=== PATIENT | female | born 2000 | race Caucasian/White ===

== ENCOUNTER 2024-10-02 19:01 | Emergency (ER) | payer BC, SELFPAY ==
--- NOTE | 2024-10-02 19:05 | ED_ITS ---
HPI HPI - General Adult General Chief complaint: Vaginal Bleeding Stated complaint: Vaginal Bleeding Time Seen by Provider: 10/02/24 19:04 Source: patient and family (mother) Mode of arrival: walk-in Limitations: no limitations History of Present Illness HPI narrative: The patient is a 24 year old female who present to the emergency department via personal vehicle with mother. Patient's presenting to the emergency department today for evaluation of dysfunctional uterine bleeding. She has been bleeding for several weeks. She was on control pills for 4-5 years. Then she did not have another period for 3-4 months. Then she started bleeding again. She has been bleeding for the last 3 months. Patient states her bleeding has been getting more heavy. She is using about 8 pads a day the last few days. Patient states that the lightest its ever got has just been spotting. The patient is a G0, P0. [facility] She was going to refer the patient to Dr. Ledesma this week but he does not have availability tomorrow. So, they advised her to come to the emergency department because she was complaining of feeling weak and short of breath. Prior to her visit, the patient had an ultrasound on Sunday that unfortunately was nondiagnostic. I personally reviewed the report and it revealed that there was no evidence of details about the ovaries nor endometrium as the body habitus and bowel gas precluded the patient's accurate results from her transvaginal ultrasound. Patient is having pain in the right adnexal area. It has been coinciding with this entire process. She is not having any nausea vomiting. No diarrhea or constipation. No anorexia. Had an ultrasound at [facility]. It was transvaginal ultrasound that was unequivoc al. The patient stated that they could not see her ovaries or endometrium well. Patient is concerned because they have an impressive family medical history. Her mother has had a hysterectomy as well as all of her paternal aunts. She also says that there is a heavy history of PCOS, endometriosis, and cysts present. Related Data Home Medications ?Medication ?Instructions ?Recorded ?Confirmed levonorgestrel-ethinyl estradiol tab 10/02/24 0.1 mg-20 mcg tablet (Lessina) Previous Rx's ?Medication ?Instructions ?Recorded hydrocodone 5 mg-acetaminophen 325 1 tab PO QID PRN pa in #10 tabs 10/02/24 mg tablet megestrol 20 mg tablet See Rx Instructions .Route 0 10/02/24 .COMPLEX #14 tabs Allergies Allergy/AdvReac Type Severity Reaction Status Date / Time No Known Drug Allergies Allergy Verified 10/02/24 19:14 Opioid [facility] Opioid Management Most Recent Opioid Data: Last Pain Scale 5 Today, 19:34 Last ED Pain Assessment Today, 19:34 Review of Systems ROS Narrative 10 Systems were reviewed, and unless not ed in the HPI, all other systems are reviewed, unremarkable, or noncontributory. PFSH PFS Social History Little interest or pleasure in doing things: not at all Feeling down, depressed, or hopeless: not at all Exam Narrative Exam Narrative: Prior to examining the patient, I have washed with hospital approved and provided Antiseptic Hand [employer] and have also applied gloves.? Prior to touching the patient, I asked for consent to examine the patient.? General: Alert and oriented, well nourished, mild distress. Eye: PERRL, EOMI, normal conjunctiva. HENT: Normocephalic, normal hearing, moist oral mucosa, no scleral icterus Lungs: Clear to auscultation and percussion, non-labored respiration. Heart: Normal rate, regular rhythm, no murmur, gallop or edema. Abdomen: Soft, non-tender, non-distended, normal bowel sounds, no masses. Musculoskeletal: Normal range of motion and strength, no tenderness or swelling. Skin: Skin is warm, dry and pink, no rashes or lesions. Neurologic: Awake, alert, and oriented X3, CN II-XII intact. Psychiatric: Cooperative, appropriate mood and affect.? Following the conclusion of the examination, I have washed my hands thoroughly after removing examination gloves. Constitutional Vital Signs, click to edit/add: Last Vital Signs Temp 98.1 F 10/02/24 19:07 Pulse 86 10/02/24 19:07 Resp 18 10/02/24 19:07 BP 143/83 H 10/02/24 19:07 Pulse Ox 99 10/02/24 19:07 Course Course Hospital Course: Patient was here for investigational studies and as well as referral information. Patient was concerned that she may be anemic secondary to blood loss. Her hemoglobin is 11.1. The patient has no history of acute coronary artery disease and therefore does not necessitate any transfusion or emergent intervention at this time. Patient has vital signs that are stable. Reevaluation(s) Reevaluation #1: After talking to Dr. Ledesma. I did have an opportunity speak with the patient as well as her mother. They seem pleased with the disposition planning. All questions were answered to their satisfaction. Time: 20:43 Vital Signs Vital signs: Vital Signs Temperature 98.1 F 10/02/24 19:07 Pulse Rate 86 10/02/24 19:07 Respiratory Rate 18 10/02/24 19:07 Blood Pressure 143/83 H 10/02/24 19:07 Pulse Oximetry 99 10/02/24 19:07 Temperature 98.1 F 10/02/24 19:07 Pulse Rate 86 10/02/24 19:07 Respiratory Rate 18 10/02/24 19:07 Blood Pressure 143/83 H 10/02/24 19:07 Pulse Oximetry 99 10/02/24 19:07 Medical Decision Making Differential Diagnosis Differential Diagnosis: appendicitis, ovarian cyst, ovarian torsion, constipation, DUB, blood loss Medical Records Medical records reviewed: Yes I reviewed the patient's medical records Lab Data Lab results reviewed: Yes I reviewed the patient's lab results Lab results narrative: CBC reveals mild elevation of white blood cell count which can be from stress versus taking the control pills. The patient however has no evidence of needing a transfusion. She has mild anemia at 11.1 and hematocrit of 34.2. Based on overall was unremarkable. Her left flank function are appropriate and patient's test is negative. Patient had indicated that she may have been having some urgency and frequency with urination but there is negative nitrite rates and trace leukocyte esterase. There is no indication of urinary tract infection at this time. Labs: Lab Results 10/02/24 10/02/24 Range/Units 19:15 19:30 WBC 13.2 H (4.0-11.0) 10^3/uL RBC 4.14 L (4.20-5.40) 10^6/uL Hgb 11.1 L (12.0-16.0) g/dL Hct 34.2 L (36.0-48.0) % MCV 82.6 (81.0-99.0) fL MCH 26.8 (26.7-34.0) pg MCHC 32.5 (29.9-35.2) g/dL RDW 14.2 (11.0-15.0) % Plt Count 486 H (150-450) 10^3/uL MPV 8.6 L (9.5-13.5) fL Neut % (Auto) 58.3 (43.0-75.0) % Lymph % (Auto) 34.0 (20.5-60.0) % [place] % (Auto) 6.1 (1.7-12.0) % Eos % (Auto) 0.9 (0.9-7.0) % Baso % (Auto) 0.5 (0.2-2.0) % Neut # (Auto) 7.7 H (1.4-6.5) 10^3/uL Lymph # (Auto) 4.5 H (1.2-3.8) 10^3/uL [place] # (Auto) 0.8 (0.3-0.8) 10^3/uL Eos # (Auto) 0.1 (0.0-0.7) 10^3/uL Baso # (Auto) 0.1 (0.0-0.1) 10^3/uL Abs Immat Gran (auto) 0.03 (0.00-0.03) 10^3/uL Imm/Tot Granulo (auto) 0.2 (0.0-0.5) % Sodium 139 (136-145) mmol/L Potassium 3.3 L (3.5-5.1) mmol/L Chloride 103 (98-107) mmol/L Carbon Dioxide 25.1 (21.0-32.0) mmol/L Anion Gap 14.2 BUN 6.0 L (7.0-18.0) mg/dL Creatinine 0.84 (0.55-1.02) mg/dL Est GFR ( Amer) >60 (>=60 mL/min/1.73m^2) Est GFR (Non-Af Amer) >60 (>=60 mL/min/1.73m^2) BUN/Creatinine Ratio 7.1 Glucose 107 H (74-106) mg/dL Calcium 9.0 (8.5-10.1) mg/dL C-Reactive Protein 1.01 H (<=0.50) mg/dL HCG, Quant <1 mIU/mL Urine Color Lt. yellow (YELLOW) Urine Clarity Clear (CLEAR) Urine pH 6.5 (5.0-9.0) Ur Specific [place] <=1.005 A (1.005-1.025) Urine Protein Trace (NEG/TRACE) mg/dL Urine Glucose (UA) Negative (NEGATIVE) mg/dL Urine Ketones Negative (NEGATIVE) mg/dL Urine Occult Blood Large A (NEGATIVE) Urine Nitrite Negative (NEGATIVE) Urine Bilirubin Negative (NEGATIVE) Urine Urobilinogen 0.2 (0.2-1.0) EU/dL Ur Leukocyte Esterase Trace A (NEGATIVE) Discharge Plan Discharge Chief Complaint: Vaginal Bleeding Clinical Impression: Menometrorrhagia, Dysfunctional uterine bleeding Patient Disposition: Home, Self-Care Condition: Good Mode of Transportation: Private Vehicle Prescriptions / Home Meds: New megestrol 20 mg tablet See Rx Instructions .ROUTE .COMPLEX Qty: 14 0RF Rx Instructions: 20 mg orally PO BID x 4 days, then once daily hydrocodone-acetaminophen 5-325 mg tablet 1 tab PO QID PRN (Reason: pain) Qty: 10 0RF No Action levonorgestrel-ethinyl estrad [Lessina] 0.1-20 mg-mcg tablet Print Language: Polish Instructions: Abnormal (Dysfunctional) Uterine Bleeding (ED) Additional Instructions: Thank you for trusting me with your care today. These are the instructions from Dr. Ledesma: 1. Begin taking the Megace. We want you to take 20 mg by mouth twice per day for 4 days. Then, you will take it once a day. 2. Call his office tomorrow. Please let them know that you are in the ER and that Dr. Ledesma had indicated he wanted you to be seen next week, perhaps on Sunday. 3. If you should get in distress or something in your condition changes, he recommended that you call and through the hospital electric knife operator and they can direct you to him where they can further determine if you need to return back to the emergency department or not. You can stay on your control pill once daily. If you are having pain that you cannot manage with ibuprofen, then I have written you for a couple [place] tablets to take. Please member you cannot operate heavy equipment or drive on this medication. If you have never taken it before please start with half of a tablet and see if that helps subside your pain. I know this is frustrating but you are closer to getting things resolved at this point. I hope you have a nice day. Referrals: Reza Ledesma DO [Physician, [employer]] - 1 week BETH PACHECO [Primary Care Provider, Family Practice] - 1 week
[2024-10-02 19:07] VITALS: BP 143/83; PULSE 86; TEMP 36.7; O2SAT 99; BMI 39.5
[2024-10-02 19:39] LABS: Bilirubin Urine NEGATIVE (NEGATIVE); Blood Urine LARGE (NEGATIVE); Clarity Urine CLEAR (CLEAR); Color Urine LT. YELLOW (YELLOW); Glucose Urine UA NEGATIVE (NEGATIVE); Ketones Urine NEGATIVE (NEGATIVE); Leukocyte Esterase Urine TRACE (NEGATIVE); Nitrite Urine NEGATIVE (NEGATIVE); Protein Urine TRACE mg/dL (NEG/TRACE); Specific Gravity Urine <=1.005 (1.005-1.025); Urobilinogen Urine 0.2 EU/dL (0.2-1.0); pH Urine 6.5 (5.0-9.0)
[2024-10-02 19:40] LABS: Basophils Absolute Auto 0.1 10^3/uL (0.0-0.1); Basophils Percent Auto 0.5 % (0.2-2.0); Eosinophils Absolute Auto 0.1 10^3/uL (0.0-0.7); Eosinophils Percent Auto 0.9 % (0.9-7.0); Hematocrit 34.2 % (36.0-48.0); Hemoglobin 11.1 g/dL (12.0-16.0); Immature Granulocytes Abs Auto 0.03 10^3/uL (0.00-0.03); Immature Granulocytes Pct Auto 0.2 % (0.0-0.5); Lymphocytes Absolute Auto 4.5 10^3/uL (1.2-3.8); Mean Corpuscular HGB Conc 32.5 g/dL (29.9-35.2); Mean Corpuscular Hemoglobin 26.8 pg (26.7-34.0); Mean Corpuscular Volume 82.6 fL (81.0-99.0); Mean Platelet Volume 8.6 fL (9.5-13.5); Monocytes Absolute Auto 0.8 10^3/uL (0.3-0.8); Monocytes Percent Auto 6.1 % (1.7-12.0); Neutrophils Absolute Auto 7.7 10^3/uL (1.4-6.5); Neutrophils Percent Auto 58.3 % (43.0-75.0); Platelet Count 486 10^3/uL (150-450); Red Blood Count 4.14 10^6/uL (4.20-5.40); Red Cell Distribution Width 14.2 % (11.0-15.0); White Blood Count 13.2 10^3/uL (4.0-11.0)
--- NOTE | 2024-10-02 19:45 | PC.NURSE ---
patient recently placed back on control for vaginal bleeding.
--- NOTE | 2024-10-02 19:53 | PC.NURSE ---
patient states she has been told she is constipated although she has regular bowel movements.
[2024-10-02 19:56] LABS: Anion Gap 14.2; BUN Creatinine Ratio 7.1; C Reactive Protein 1.01 mg/dL (<=0.50); Carbon Dioxide 25.1 mmol/L (21.0-32.0); Chloride 103 mmol/L (98-107); Estimated GFR (African America >60 (>=60 mL/min/1.73m^2); Estimated GFR (Non-African Ame >60 (>=60 mL/min/1.73m^2); Glucose 107 mg/dL (74-106); Potassium 3.3 mmol/L (3.5-5.1); Sodium 139 mmol/L (136-145)
[2024-10-02 19:57] LABS: HCG Quantitative <1 mIU/mL
[2024-10-02 20:43] VITALS: BP 111/74; PULSE 89; O2SAT 97
== END 2024-10-02 20:45 | disposition home or self-care (01) ==
PROVIDERS: Emergency Provider Emergency Medicine; PCP Family Medicine
DX: N93.8 Other specified abnormal uterine and vaginal bleeding (principal); N92.1 Excessive and frequent menstruation with irregular cycle
CPT/HCPCS: 36415; 80048; 81003; 84702; 85025; 86140; 99284

== ENCOUNTER 2024-10-06 12:28 | Outpatient (OUT) | payer BC, SELFPAY ==
[2024-10-06 12:53] LABS: Basophils Absolute Auto 0.1 10^3/uL (0.0-0.1); Basophils Percent Auto 0.6 % (0.2-2.0); Eosinophils Absolute Auto 0.1 10^3/uL (0.0-0.7); Eosinophils Percent Auto 0.9 % (0.9-7.0); Hematocrit 36.1 % (36.0-48.0); Hemoglobin 11.5 g/dL (12.0-16.0); Immature Granulocytes Abs Auto 0.02 10^3/uL (0.00-0.03); Immature Granulocytes Pct Auto 0.2 % (0.0-0.5); Lymphocytes Absolute Auto 2.7 10^3/uL (1.2-3.8); Lymphocytes Percent Auto 25.9 % (20.5-60.0); Mean Corpuscular HGB Conc 31.9 g/dL (29.9-35.2); Mean Corpuscular Hemoglobin 26.6 pg (26.7-34.0); Mean Corpuscular Volume 83.4 fL (81.0-99.0); Mean Platelet Volume 8.6 fL (9.5-13.5); Monocytes Absolute Auto 0.7 10^3/uL (0.3-0.8); Monocytes Percent Auto 6.2 % (1.7-12.0); Neutrophils Percent Auto 66.2 % (43.0-75.0); Platelet Count 510 10^3/uL (150-450); Red Blood Count 4.33 10^6/uL (4.20-5.40); Red Cell Distribution Width 14.2 % (11.0-15.0); White Blood Count 10.5 10^3/uL (4.0-11.0)
[2024-10-06 14:03] LABS: Estimated Average Glucose 114 mg/dL; Glycohemoglobin A1C 5.6 % (4.5-6.2)
[2024-10-06 14:05] LABS: Free T4 1.22 ng/dL (0.76-1.46)
[2024-10-06 14:12] LABS: Thyroid Stimulating Hormone 1.397 uIU/mL (0.358-3.740)
[2024-10-06 14:20] LABS: HCG Quantitative <1 mIU/mL
[2024-10-07 09:25] LABS: FSH 2.8 mIU/mL (.); Luteinizing Hormone(LH) 3.1 mIU/mL (.)
[2024-10-12 13:07] LABS: DHEA, Serum 228 ng/dL (31-701)
== END 2024-10-06 12:29 | disposition home or self-care (01) ==
LOC: LAB 12:30
PROVIDERS: PCP Family Medicine; Visit Provider Obstetrics & Gynecology
DX: E28.2 Polycystic ovarian syndrome (principal)
CPT/HCPCS: 36415; 82626; 82627; 83001; 83002; 83036; 84439; 84443; 84702; 85025

== ENCOUNTER 2024-10-10 10:29 | Outpatient (OUT) | payer BC, SELFPAY ==
--- NOTE | 2024-10-10 | US_ITS ---
The [address] [address] Patient Name: ALCIDES SINGH MRN: [id number] date: 2000 Sex: F Assigned Patient Location: Current Patient Location: Accession/Order Number: [id number] Exam Date: 10/10/2024 12:24 Report Date: 10/10/2024 12:30 At the request of: MADELIN KIM DO Procedure: US pelvis w/ transvaginal Pelvic ultrasound. Reason for exam: PCOS Comparison: none Technique: Transabdominal imaging of the uterus and ovaries was performed. Transvaginal imaging of the uterus and ovaries was also obtained. Additional spectral Doppler analysis of the ovaries was also obtained. Findings: Uterus measures 7.5 x 3.0 x 5.2 cm. No fibroid. Endometrium measures 5.1 mm without focal abnormality. Free fluid is seen involving the left axilla. Right ovary measures 2.4 x 1.6 x 1.9 cm. Left ovary measures 3.1 x 1.2 x 1.9 cm. No adnexal mass or cyst. Normal arterial and venous Doppler waveforms of the ovaries. US/US pelvis w/ transvaginal Impression: Free fluid is seen involving the left adnexa. No ovarian, endometrial or uterine abnormality is seen. Impression dictated by: Hamlet Lewis Jr., D.O. 10/10/2024 12:30 PM Dictation Location: [place] [address] Electronically authenticated by: [id number] Y Date: 10/10/2024 12:30
== END 2024-10-10 10:30 | disposition home or self-care (01) ==
LOC: US 10:29
PROVIDERS: Visit Provider Obstetrics & Gynecology
DX: E28.2 Polycystic ovarian syndrome (principal)
CPT/HCPCS: 76830; 76856